=== PATIENT | male | born 1965 | race African-American/Black ===

== ENCOUNTER 2019-04-27 00:26 | Emergency (ER) | payer SELFPAY ==
[2019-04-27] MEDS ORDERED: TETRACAINE HCL 0.5% OPH SOLN 4 ML OD ONE (01:15)
--- NOTE | 2019-04-27 01:22 | ER Document Report ---
ED Eye Complaint - General Chief Complaint: Eye Injury Stated Complaint: EYE BURN Time Seen by Provider: 04/27/19 00:56 Information source: Patient Notes: Mr. Amezcua is a 54 yo m w/ no significant past medical history presenting to the ED for right eye pain and swelling. Patient states that today he was at work and turned around and walked almost directly into a burning incidents. Patient states as it happened, he immediately closes eye. He denies any changes in vision however he states that he started placing triple antibiotic ointment on the burn notes directly below his eye on the lower eyelid. He also applied some peroxide. He states that the burn has started producing some thick white/yellowish discharge. Discharge continues to hook upwards onto his upper eyelashes and go into his eye and causing some partial vision obstruction. He states every time that he tries to clear it out, it produces more white discharge. He endorses worsening swelling of the upper and lower eyelid. He denies any changes in vision, pain with extraocular movements, or headache. - Related Data Allergies/Adverse Reactions: No Known Allergies Allergy (Unverified 04/27/19 00:36) Past Medical History - Social History Smoking Status: Current Every Day Smoker Frequency of alcohol use: None Drug Abuse: None Family History: Reviewed & Not Pertinent Patient has suicidal ideation: No Patient has homicidal ideation: No Review of Systems - Review of Systems Constitutional: See HPI EENT: See HPI Cardiovascular: No symptoms reported Respiratory: No symptoms reported Gastrointestinal: No symptoms reported Genitourinary: No symptoms reported Male Genitourinary: No symptoms reported Musculoskeletal: No symptoms reported Skin: No symptoms reported Hematologic/Lymphatic: No symptoms reported Neurological/Psychological: No symptoms reported Physical Exam - Vital signs Vitals: Temp Pulse Resp BP Pulse Ox 97.9 F 80 18 140/79 H 96 04/27/19 00:30 04/27/19 00:30 04/27/19 00:30 04/27/19 00:30 04/27/19 00:30 Interpretation: Hypertensive - General General appearance: Appears well, Alert - HEENT Head: Normocephalic, Atraumatic Eyes: Normal Conjunctiva: Injected - On the right, Other - No corneal abrasions on fluorescein examination Cornea: Normal Extraocular movements intact: Yes Eyelashes: Singed - Right lower eyelids are singed, Other - Swelling and redness of the right upper eyelid Pupils: PERRL Visual acuity- Right eye: 20/40 Visual acuity- Left eye: 20/20 Visual acuity- Both eyes: 20/20 Corrective lenses worn: No - Respiratory Respiratory status: No respiratory distress Chest status: Nontender Breath sounds: Normal Chest palpation: Normal Notes: Patient has a 1 cm wide by half a centimeter tall oval superficial burn to the mid lower eyelid. Some superficial singed eyelashes on the lower eyelid. Thick whitish discharge coming from this burn extends into the upper eyelashes and to the medial canthus. - Cardiovascular Rhythm: Regular Heart sounds: Normal auscultation Murmur: No - Abdominal Inspection: Normal Distension: No distension Bowel sounds: Normal Tenderness: Nontender Organomegaly: No organomegaly - Back Back: Normal, Nontender - Extremities General upper extremity: Normal inspection, Nontender, Normal color, Normal ROM, Normal temperature General lower extremity: Normal inspection, Nontender, Normal color, Normal ROM, Normal temperature, Normal weight bearing. No: Fausto's sign - Neurological Neuro grossly intact: Yes Cognition: Normal Orientation: AAOx4 Sara Coma Scale Eye Opening: Spontaneous Sara Coma Scale Verbal: Oriented Sara Coma Scale Motor: Obeys Commands Sara Coma Scale Total: 15 Speech: Normal Motor strength normal: LUE, RUE, LLE, RLE Sensory: Normal - Psychological Associated symptoms: Normal affect, Normal mood - Skin Skin Temperature: Warm Skin Moisture: Dry Skin Color: Normal Course - Re-evaluation Re-evalutation: Patient is generally well-appearing nontoxic. Initial vitals notable for mildly elevated blood pressure. Differential diagnosis includes blepharitis, corneal abrasion, foreign body, superficial skin burn Physical examination negative for any evidence of corneal abrasion or foreign body. There is evidence of blepharitis with swollen upper eyelid. Lower eyelid has a small superficial burn. Patient was instructed to irrigate his eye and that removed a significant amount of purulent discharge that had developed from the lower burn. Patient's vision was checked and it is slightly decreased on th e right however the patient states that the discharge quickly re-accumulates and he feels it is causing some blurriness. 04/27/19 03:12 Patient provided with erythromycin ointment and p.o. Bactrim for his superficial skin burn. Patient's last tetanus shot was 2 years ago. Patient instructed to use erythromycin ointment for the next 10 days both on the conjunctival portion of the eye for the mild blepharitis that he has as well as the superficial burn on the lower eyelid. Patient recommended to follow-up with him resource analyst or contaminated land consultant as needed. Given return precautions. - Vital Signs Vital signs: Temp Pulse Resp BP Pulse Ox 97.7 F 72 16 133/77 H 99 04/27/19 03:22 04/27/19 03:22 04/27/19 03:22 04/27/19 03:22 04/27/19 03:22 Discharge - Discharge Clinical Impression: Blepharitis of eyelid of right eye Qualifiers: Blepharitis type: unspecified type Eyelid: both upper and lower Qualified Code(s): H01.00A - Unspecified blepharitis right eye, upper and lower eyelids Burn of eyelid, right Qualifiers: Encounter type: initial encounter Qualified Code(s): T26.01XA - Burn of right eyelid and periocular area, initial encounter Condition: Good Disposition: HOME, SELF-CARE Instructions: Sanders ([facility]), Sanders of the Face ([facility]) Additional Instructions: It is important that you continue applying the eye ointment both inside and the outside burn for the next 7 to 10 days. I would recommend that you continue taking the antibiotic for the next week. If you noticing worsening signs of infection, pus, redness, change in vision, or any other concerning symptoms, return to the ED for further evaluation. Prescriptions: Sulfamethoxazole/Trimethoprim [Bactrim Ds Tablet] 1 tab PO BID 14 Days #28 tablet Erythromycin Base [Erythromycin Oph 1 Gm Oint Ud] 1 applic OD TID 10 Days #1 tube
[2019-04-27] MEDS ORDERED: SULFAMETHOXAZOLE/TRIMETHOPRIM 800-160 MG TABLET PO ONE (02:38)
[2019-04-27] MEDS ORDERED: ERYTHROMYCIN 0.5% OPH OINT 1 GM UNIT DOSE OD ONE (02:38)
[2019-04-27 03:34] VITALS: BP 133/77
== END 2019-04-27 03:22 | disposition home or self-care (01) ==
LOC: ER 00:26
DX: T26.01XA Burn of right eyelid and periocular area, initial encounter (principal); X19.XXXA Contact with other heat and hot substances, initial encounter; Y99.0 Civilian activity done for income or pay; H01.00A Unspecified blepharitis right eye, upper and lower eyelids; F17.200 Nicotine dependence, unspecified, uncomplicated; I10 Essential (primary) hypertension
CPT/HCPCS: 99283; J3490

== ENCOUNTER 2019-11-05 15:51 | Emergency (ER) | payer SELFPAY ==
[2019-11-05 16:11] VITALS: BP 137/81
[2019-11-05] MEDS ORDERED: IBUPROFEN 600 MG TABLET PO ONE (17:03)
[2019-11-05] MEDS ORDERED: ACETAMINOPHEN 325 MG TABLET PO ONE (17:04)
--- NOTE | 2019-11-05 17:27 | RADIOLOGY REPORT (SQ) ---
EXAM DESCRIPTION: FOOT LEFT COMPLETE IMAGES COMPLETED DATE/TIME: 11/05/2019 4:58 pm REASON FOR STUDY: left posterior foot pain; COMPARISON: None. NUMBER OF VIEWS: Three views. TECHNIQUE: AP, lateral and oblique radiographic images acquired of the left foot. LIMITATIONS: None. FINDINGS: MINERALIZATION: Normal. BONES: No acute fracture or dislocation. No worrisome bone lesions. Small posterior calcaneal spur. JOINTS: No effusions. SOFT TISSUES: No soft tissue swelling. No foreign body. OTHER: No other significant finding. IMPRESSION: Small calcaneal spur. No acute finding. TECHNICAL DOCUMENTATION: JOB ID: [id number] 2010 [employer]- All Rights Reserved Reading location - IP/workstation name: [email or web address]
--- NOTE | 2019-11-05 17:40 | ER Document Report ---
HPI - HPI Time Seen by Provider: 11/05/19 16:38 Pain Level: 4 Context: Patient is a 54-year-old male who presents emergency department with a chief complaint of left foot pain. Patient states that he started to have pain about a week ago. He also mentions that he started to wear new shoes. States the pain is on the posterior aspect of his left foot. He also has a second complaint of congestion for the past 1 to 2 weeks. He states that he feels flushing feeling in his sinuses when he puts his head forward or when he stands up too fast. - ROS Systems Reviewed and Negative: Yes All other systems reviewed and negative - CONSTITUTIONAL Constitutional: DENIES: Fever - EENT EENT: REPORTS: Nasal Drainage-Purulent, Congestion. DENIES: Sore Throat, Ear Pain - NEURO Neurology: DENIES: Headache - RESPIRATORY Respiratory: DENIES: Trouble Breathing, Coughing - GASTROINTESTINAL Gastrointestinal: DENIES: Abdominal Pain, Nausea, Patient vomiting - REPRODUCTIVE Reproductive: DENIES: : - MUSCULOSKELETAL Musculoskeletal: REPORTS: Extremity pain - Left posterior heel - DERM Skin Color: Normal Skin Problems: None Past Medical History - Social History Smoking Status: Current Every Day Smoker Chew tobacco use (# tins/day): No Frequency of alcohol use: None Drug Abuse: Marijuana Family History: Reviewed & Not Pertinent Patient has homicidal ideation: No Vertical Provider Document - CONSTITUTIONAL Agree With Documented VS: Yes Exam Limitations: No Limitations General Appearance: No Apparent Distress - HEENT HEENT: Atraumatic, Normocephalic, PERRLA Notes: Tenderness noted to maxillary sinuses - NECK Neck: Normal Inspection - RESPIRATORY Respiratory: Breath Sounds Normal, No Respiratory Distress - CARDIOVASCULAR Cardiovascular: Regular Rate, Regular Rhythm Pulses: Normal: Brachial, Posterior tibial, Dorsalis pedis - MUSCULOSKELETAL/EXTREMETIES Musculoskeletal/Extremeties: FROM, Tender - Posterior heel, Edema - 1+ nonpit ting edema. negative: Eccymosis - NEURO Level of Consciousness: Awake, Alert, Appropriate Motor/Sensory: No Motor Deficit, No Sensory Deficit - DERM Integumentary: Warm, Dry, No Rash Course - Re-evaluation Re-evalutation: 11/05/19 Patient's x-ray shows a calcaneus spur. This is most likely the cause of his swelling and pain. Educated patient to take ibuprofen and Tylenol. He is in agreement with this plan. He will follow-up with orthopedics or podiatry. I have a low suspicion for DVT. We will start him on Augmentin for sinus infection. Follow-up precautions were given. Verbal discharge instructions were given to the patient. They verbalized understanding. They are stable for discharge. - Vital Signs Vital signs: Temp Pulse Resp BP Pulse Ox 99.2 F 93 16 137/81 H 95 11/05/19 15:57 11/05/19 15:57 11/05/19 15:57 11/05/19 15:57 11/05/19 15:57 Procedures - Immobilization Left Foot Pre-Proc Neuro Vasc Exam: Normal Immobilizer type: Radu wrap, Crutches, Post-op shoe Performed by: PCT Post-Proc Neuro Vasc Exam: Normal, Unchanged from pre-exam Alignment checked and good: Yes Discharge - Discharge Clinical Impression: Bone spur of posterior portion of right calcaneus Foot pain Qualifiers: Laterality: left Qualified Code(s): M79.672 - Pain in left foot Acute sinusitis Qualifiers: Sinusitis location: maxillary Recurrence: not specified as recurrent Qualified Code(s): J01.00 - Acute maxillary sinusitis, unspecified Condition: Stable Disposition: HOME, SELF-CARE Additional Instructions: You were seen today in the emergency department for foot pain. You have a bone spur. Up with orthopedics or podiatry in regards to this visit. Take ibuprofen 800 mg every 8 hours as needed. Take tylenol 1000 mg every 6 hours. Use the crutches as needed for moving around. Change your footwear. You are also being treated for a sinus infection. Take your antibiotics as prescribed. Prescriptions: Amoxicillin/Potassium Clav [Augmentin 875-125 Tablet] 1 tab PO BID #20 tab Ibuprofen [Motrin 800 mg Tablet] 800 mg PO Q8H PRN #30 tab PRN Reason: Referrals: ESE CARDENAS DPM [ACTIVE STAFF] - Follow up in 3-5 days BUDDY CARIAS JR, DO [ACTIVE PROVISIONAL STAFF] - Follow up in 3-5 days
== END 2019-11-05 17:51 | disposition home or self-care (01) ==
LOC: ER 15:51
DX: M79.672 Pain in left foot (principal); M77.31 Calcaneal spur, right foot; R60.0 Localized edema; J01.00 Acute maxillary sinusitis, unspecified; F17.200 Nicotine dependence, unspecified, uncomplicated; F12.10 Cannabis abuse, uncomplicated
CPT/HCPCS: 99283